=== PATIENT | female | born 1990 | race African-American/Black ===

== ENCOUNTER 2019-01-17 06:26 | Emergency (ER) | payer SELFPAY ==
[~2019-01-17] VITALS: Ht 165.1 cm; Wt 69.8 kg
[2019-01-17] MEDS ORDERED: BACITRACIN ZINC OINT UDPKT TOP ONE (07:15)
[2019-01-17] MEDS ORDERED: HYDROCODONE/ACETAMINOPHEN 5/325MG TABLET PO ONE (07:45)
[2019-01-17 07:53] VITALS: BP 115/76
== END 2019-01-17 08:24 | disposition home or self-care (01) ==
LOC: ER 06:26
DX: S61.317A Laceration without foreign body of left little finger with damage to nail, initial encounter (principal); Z98.890 Other specified postprocedural states; Y04.0XXA Assault by unarmed brawl or fight, initial encounter; Y93.89 Activity, other specified; Y92.89 Other specified places as the place of occurrence of the external cause; Y99.8 Other external cause status
CPT/HCPCS: 73140; 99283

== ENCOUNTER 2019-04-25 12:09 | Emergency (ER) | payer SELFPAY ==
[~2019-04-25] VITALS: Ht 172.7 cm; Wt 62.0 kg
[2019-04-25 12:20] VITALS: BP 116/72
[2019-04-25] MEDS ORDERED: DIPHENHYDRAMINE 50MG/ML VIAL IV ONE (15:15)
[2019-04-25] MEDS ORDERED: METOCLOPRAMIDE HCL 10MG/2ML VIAL IV ONE (15:15)
[2019-04-25] MEDS ORDERED: SODIUM CHLORIDE 0.9% 500 ML IV ONE (15:15)
== END 2019-04-25 16:48 | disposition left against medical advice (07) ==
LOC: ER 12:09
DX: G43.909 Migraine, unspecified, not intractable, without status migrainosus (principal); G44.89 Other headache syndrome; R42 Dizziness and giddiness
CPT/HCPCS: 99281; J7040

== ENCOUNTER 2019-09-24 00:40 | Emergency (ER) | payer MEDICAID | END 2019-09-24 02:15 | disposition left against medical advice (07) | LOC: ER 00:40 | DX: R06.02 Shortness of breath (principal); Z53.21 Procedure and treatment not carried out due to patient leaving prior to being seen by health care provider ==